=== PATIENT | female | born 1990 | race Two or more races ===

== ENCOUNTER 2020-12-12 05:11 | Emergency (ER) | payer OTHER ==
[~2020-12-12] VITALS: Ht 162.6 cm; Wt 90.7 kg
[2020-12-12] MEDS ORDERED: PRENATABS FA T1 EACH (05:21)
== END 2020-12-12 12:27 | disposition home or self-care (01) ==
LOC: ER 05:11
DX: O46.8X1 Other antepartum hemorrhage, first trimester (principal); R10.2 Pelvic and perineal pain; O26.891 Other specified pregnancy related conditions, first trimester; Z3A.10 10 weeks gestation of pregnancy

== ENCOUNTER 2021-10-23 14:35 | Outpatient (CLI) | payer OTHER ==
[~2021-10-23 14:35] MED LIST: PRENATABS FA T1 EACH
== END 2021-10-23 15:45 | disposition home or self-care (01) ==
LOC: PRENATAL 14:35
PROVIDERS: ATTEND Obstetrics & Gynecology Maternal & Fetal Medicine
DX: O35.0XX0 Maternal care for (suspected) central nervous system malformation in fetus, not applicable or unspecified (principal); O35.3XX0 Maternal care for (suspected) damage to fetus from viral disease in mother, not applicable or unspecified; Z14.8 Genetic carrier of other disease; Z3A.21 21 weeks gestation of pregnancy

== ENCOUNTER 2022-02-26 08:04 | Inpatient (IN) | payer OTHER ==
[~2022-02-26] VITALS: Ht 162.6 cm; Wt 102.1 kg
== END 2022-02-28 15:33 | disposition home or self-care (01) | DRG 798 ==
LOC: OB/GYN 08:04 → LDR 08:04 → OB/GYN 18:00
PROVIDERS: ADMIT Obstetrics & Gynecology; ATTEND Obstetrics & Gynecology
PROC: 10E0XZZ Delivery of Products of Conception, External Approach (ICD-10-PCS; principal; 2022-02-26)
PROC: 0HQ9XZZ Repair Perineum Skin, External Approach (ICD-10-PCS; 2022-02-26)
PROC: 3E033VJ Introduction of Other Hormone into Peripheral Vein, Percutaneous Approach (ICD-10-PCS; 2022-02-26)
PROC: 3E0P7VZ Introduction of Hormone into Female Reproductive, Via Natural or Artificial Opening (ICD-10-PCS; 2022-02-26)
PROC: 4A1HXCZ Monitoring of Products of Conception, Cardiac Rate, External Approach (ICD-10-PCS; 2022-02-26)
PROC: 0UB70ZZ Excision of Bilateral Fallopian Tubes, Open Approach (ICD-10-PCS; 2022-02-27)
DX: O70.0 First degree perineal laceration during delivery (principal); Z37.0 Single live birth; Z30.2 Encounter for sterilization; Z3A.39 39 weeks gestation of pregnancy; Z20.822 Contact with and (suspected) exposure to COVID-19